=== PATIENT | male | born 1975 ===

== ENCOUNTER 2021-04-17 05:54 | Day surgery (SDC) | payer OTHER ==
[2021-04-17] MEDS ORDERED: ULTRACET PO (14:26)
[2021-04-17] MEDS ORDERED: SURFAK240 M1 PO (14:27)
[2021-04-17] MEDS ORDERED: PROTONIX40 MG PO (14:27)
== END 2021-04-17 17:46 | disposition home or self-care (01) ==
LOC: CIR.AMB 05:54
PROVIDERS: ATTEND Surgery
DX: K40.90 Unilateral inguinal hernia, without obstruction or gangrene, not specified as recurrent (principal); D17.5 Benign lipomatous neoplasm of intra-abdominal organs; Z20.822 Contact with and (suspected) exposure to COVID-19